=== PATIENT | male | born 1975 | race Caucasian/White ===

== ENCOUNTER 2024-02-19 09:21 | Day surgery (SDC) | payer MEDICAID, SELFPAY ==
--- NOTE | 2024-02-11 07:40 | EKG12_ITS ---
Test Reason : PRE OP Blood Pressure : */* mmHG Vent. Rate : 63 BPM Atrial Rate : 63 BPM P-R Int : 170 ms QRS Dur : 118 ms QT Int : 404 ms P-R-T Axes : 73 98 19 degrees QTcB Int : 413 ms Normal sinus rhythm Rightward axis Non-specific intra-ventricular conduction delay Borderline ECG No previous ECGs available Confirmed by WILL WHATLEY, STEPH ([id number]), supervising editor trailer GERALDO CRAWFORD ([id number]) on 02/12/2024 6:15:37 AM Referred By: Jose Wetzel Confirmed By: STEPH SOLIS MD
[2024-02-11 07:52] LABS: Hematocrit 42.7 % (40-54); Mean Corp Hgb Conc 32.8 g/dL (32-36); Mean Corpuscular Hgb 29.1 pg (27.0-32.0); Mean Corpuscular Volume 88.8 fL (80-94); Mean Platelet Vol. 10.2 fl (6.2-12.0); Platelet Count 262 K/mm3 (150-450); RBC Distribution Width SD 42.5 fl (35.1-43.9); Red Blood Count 4.81 M/mm3 (4.6-6.2); White Blood Count 6.4 K/mm3 (4.4-11.0)
--- NOTE | 2024-02-12 10:40 | PAT.ANESEVAL ---
Pre-Assessment Diagnosis/Proposed Procedure Planned Operative Procedure(s): (R) Lap Robotic Inguinal Hernia with mesh poss bilateral Anesthesia History Anesthesia History - liquid flavor compounder: Anesthesia History - liquid flavor compounder Hx Hospitalization No 02/09/24 12:57 Any Problems With Anesthesia No 02/09/24 12:57 Cholinesterase deficiency No 02/09/24 12:57 You/Your Family Experience No 02/09/24 12:57 fever (hyperthermia) with Relationship Recent Exposure to Contagious Disease Does patient have nerve No 02/09/24 12:57 stimulator Patient instructed to have device shut off --Does patient have Pacemaker or ICD? When Was Last Pacemaker Check QUESTION #4 FULL TEXT: You/Your Family Experience fever (hyperthermia) with Anesthesia Last Oral Intake Last Oral intake: Last Oral Intake NPO since Meds taken in AM with sips of water? Meds patient instructed to take am of surgery PONV PONV - liquid flavor compounder: PONV - liquid flavor compounder Female No 02/09/24 12:57 HX of Motion Sickness Yes 02/09/24 12:57 HX of N/V After Surgery No 02/09/24 12:57 Non-Smoker Yes 02/09/24 12:57 Duration of Surgery greater Yes 02/09/24 12:57 than 60 minutes Number of Risk Factors 3 02/09/24 12:57 PONV Score Moderate Risk 02/09/24 12:57 Height & Weight Height & Weight: Anesthesia: Height & Weight Height 5 ft 10 in 02/04/24 14:27 Respiratory Assessment Respiratory Assessment - liquid flavor compounder: Respiratory Tract Infection Hx - liquid flavor compounder Hx Respiratory Tract Infection Yes 02/09/24 12:57 STOP Sleep Apnea STOP Sleep Apnea - liquid flavor compounder: STOP Sleep Apnea - liquid flavor compounder Hx Hypertension No 02/09/24 12:57 Hx Sleep Apnea No 02/09/24 12:57 CPAP BIPAP Do you snore loudly (louder Yes 02/09/24 12:57 than talking or can be heard Do you often feel tired/ No 02/09/24 12:57 fatigued/ sleepy during daytime? Has anyone observed you stop Yes 02/09/24 12:57 breathing during sleep? STOP Results Positive 02/09/24 12:57 QUESTION #5 FULL TEXT : Do you snore loudly (louder than talking or can be heard through closed doors)? Tobacco Use History Tobacco Use History - liquid flavor compounder: Tobacco Use History - liquid flavor compounder Tobacco Use Smoking Status Never smoker 02/09/24 12:57 Hx Tobacco Use No 02/09/24 12:57 Years Smoking Packs Smoked per Day Smoking Cessation Date was within the last 15 years Hx Smoking Cessation Date Hx Smoking Cessation Counseling Hematologic Medial History Hematologic Hx - liquid flavor compounder: Hematologic Medical Hx - manager van Hx of Blood Transfusion No 02/09/24 12:57 Hx of Transfusion in last 3 No 02/09/24 12:57 Months Date of Last Transfusion (if within last 3 months) Ever experience any problems No 02/09/24 12:57 with transfusion(s)? Specify any problems Hx of Preganancy in last 3 N/A 02/09/24 12:57 Months Nurse Filling Out Transfusion MGRIFFITH 02/09/24 12:57 & Questions: Date: 02/09/24 02/09/24 12:57 Time: 12:59 02/09/24 12:57 Patient unable to answer at this time (ie. confused, unrespo /Reproduction History /Reproductive History - liquid flavor compounder: /Reproductive Hx- liquid flavor compounder Hx Now Gestational Age (in weeks): EDC: Hx Hx Para Hx Section SAB [facility] Medical History (Updated 02/09/24 @ 13:05 by Amanda Yan) Wears glasses Marijuana use Injury of head and neck Former smoker Back problem Right inguinal hernia Home Medications ?Medication ?Instructions ?Recorded ?Last Taken ?Type NK 02/04/24 Unknown History Allergy/AdvReac Type Severity Reaction Status Date / Time No Known Allergies Allergy Verified 02/09/24 12:55 Surgical History (Updated 02/09/24 @ 12:56 by Amanda Yan) History of surgery History of myringotomy History of tonsillectomy and adenoidectomy Social History (Updated 02/04/24 @ 14:27 by Nicolasa Andres LPN) Smoking Status: Never smoker alcohol intake: never substance use type: does not use Audit: Pertinent Findings Pertinent Findings EKG Perinent findings: 02/11/2024 normal sinus rhythm 63 bpm nonspecific interventricular conduction delay Recommendation Anesthesia Recommendation Anesthesia recommendation: OPTIMIZED for anesthesia
[2024-02-19] VITALS (11 sets, daily range): BP systolic 110–137; BP diastolic 61–88; PULSE 49–69; RESP 16–18; TEMP 36.6–37.3; O2SAT 97–100; BMI 27.1
[2024-02-19] MEDS: 0.9% Normal Saline (1000mL) 1,000 ML 15 ML IV ×2 (09:49→13:05)
--- NOTE | 2024-02-19 09:57 | PRE.ANES_ITS ---
ASA Classification* ASA Classification ASA Classification: 2 Assessment & Plan Anesthesia* Anesthesia Assessment Anesthesia Assessment: Discussed sedation and/or anesthesia options, risks, benefits, and alternatives with patient/parents/legal guardian/POA. Questions invited. The patient/parents/legal guardian/POA seems to understand and agrees to proceed with anesthesia plan. Reviewed the physical assessment, medical history, allergy history and patient home medications list prior to surgery/procedure/anesthetic and documented any changes. Performed airway and anesthesia risk assessments. Anesthesia Type Anesthesia Type: General Anesthesia Focused Assessment* Temperature: 99.1 F Pulse Rate: 69 Blood Pressure: 137/88 Respiratory Rate: 16 Pulse Ox: 100 Airway Assessment Mouth opens: >3 cm Mallampati Score: II Focused Labs Anesthesia Preop lab: CBC WBC 6.4 K/mm3 (4.4-11.0) 02/11/24 07:38 RBC 4.81 M/mm3 (4.6-6.2) 02/11/24 07:38 Hgb 14.0 g/dL (13.0-16.5) 02/11/24 07:38 Hct 42.7 % (40-54) 02/11/24 07:38 Plt Count 262 K/mm3 (150-450) 02/11/24 07:38 CHEMISTRY COAG Pre-Assessment Diagnosis/Proposed Procedure Planned Operative Procedure(s): (R) Lap Robotic Inguinal Hernia with mesh poss bilateral Anesthesia History Anesthesia History - certified ski patroller: Anesthesia History - certified ski patroller Hx Hospitalization No 02/09/24 12:57 Any Problems With Anesthesia No 02/09/24 12:57 Cholinesterase deficiency No 02/09/24 12:57 You/Your Family Experience No 02/09/24 12:57 fever (hyperthermia) with Relationship Recent Exposure to Contagious No 02/19/24 09:46 Disease Does patient have nerve No 02/09/24 12:57 stimulator Patient instructed to have device shut off --Does patient have Pacemaker No 02/19/24 09:46 or ICD? When Was Last Pacemaker Check QUESTION #4 FULL TEXT: You/Your Family Experience fever (hyperthermia) with Anesthesia Last Oral Intake Last Oral intake: Last Oral Intake NPO since 00:00 02/19/24 09:46 Meds taken in AM with sips of No 02/19/24 09:46 water? Meds patient instructed to take am of surgery PONV PONV - certified ski patroller: PONV - certified ski patroller Female No 02/09/24 12:57 HX of Motion Sickness Yes 02/09/24 12:57 HX of N/V After Surgery No 02/09/24 12:57 Non-Smoker Yes 02/09/24 12:57 Duration of Surgery greater Yes 02/09/24 12:57 than 60 minutes Number of Risk Factors 3 02/09/24 12:57 PONV Score Moderate Risk 02/09/24 12:57 Height & Weight Height & Weight: Anesthesia: Height & Weight Height 5 ft 10 in 02/19/24 09:46 Weight: 85.6 kg 02/19/24 09:46 Body Mass Index (BMI) 27.1 02/19/24 09:46 Respiratory Assessment Respiratory Assessment - certified ski patroller: Respiratory Tract Infection Hx - certified ski patroller Hx Respiratory Tract Infection Yes 02/09/24 12:57 STOP Sleep Apnea STOP Sleep Apnea - certified ski patroller: STOP Sleep Apnea - certified ski patroller Hx Hypertension No 02/09/24 12:57 Hx Sleep Apnea No 02/09/24 12:57 CPAP BIPAP Do you snore loudly (louder Yes 02/09/24 12:57 than talking or can be heard Do you often feel tired/ No 02/09/24 12:57 fatigued/ sleepy during daytime? Has anyone observed you stop Yes 02/09/24 12:57 breathing during sleep? STOP Results Positive 02/09/24 12:57 QUESTION #5 FULL TEXT : Do you snore loudly (louder than talking or can be heard through closed doors)? Tobacco Use History Tobacco Use History - certified ski patroller: Tobacco Use History - certified ski patroller Tobacco Use Smoking Status Never smoker 02/09/24 12:57 Hx Tobacco Use No 02/09/24 12:57 Years Smoking Packs Smoked per Day Smoking Cessation Date was within the last 15 years Hx Smoking Cessation Date Hx Smoking Cessation Counseling Hematologic Medial History Hematologic Hx - certified ski patroller: Hematologic Medical Hx - senior data quality analyst Hx of Blood Transfusion No 02/09/24 12:57 Hx of Transfusion in last 3 No 02/09/24 12:57 Months Date of Last Transfusion (if within last 3 months) Ever experience any problems No 02/09/24 12:57 with transfusion(s)? Specify any problems Hx of Preganancy in last 3 N/A 02/09/24 12:57 Months Nurse Filling Out Transfusion MGRIFFITH 02/09/24 12:57 & Questions: Date: 02/09/24 02/09/24 12:57 Time: 12:59 02/09/24 12:57 Patient unable to answer at this time (ie. confused, unrespo /Reproduction History /Reproductive History - certified ski patroller: /Reproductive Hx- certified ski patroller Hx Now Gestational Age (in weeks): EDC: Hx Hx Para Hx Section SAB Active Medications Active Medications: Current Medications Generic Name Dose Route Start Last Admin Trade Name Freq PRN Reason Stop Dose Admin Cefazolin Sodium 2 gm/ N/A 20 mls @ 400 mls/hr 02/19/24 11:30 IV 02/19/24 11:32 PREOP ONE Sodium Chloride 1,000 mls @ 15 mls/hr 02/19/24 09:30 02/19/24 09:49 IV 02/24/24 22:49 15 mls/hr .Q48H PAN Administration Protocol [facility] Medical History Wears glasses Marijuana use Injury of head and neck Former smoker Back problem Right inguinal hernia Home Medications ?Medication ?Instructions ?Recorded ?Last Taken ?Type NK 02/04/24 Unknown History Allergy/AdvReac Type Severity Reaction Status Date / Time No Known Allergies Allergy Verified 02/19/24 09:45 Surgical History History of surgery History of myringotomy History of tonsillectomy and adenoidectomy Social History Smoking Status: Never smoker alcohol intake: never substance use type: does not use Review of Systems (Anesthesia) ROS Narrative System reviewed and no additional complaints, except as documented.
--- NOTE | 2024-02-19 10:36 | HP.PCM_ITS ---
History and Physical Date of Admission: 02/19/24 Intake Vital Signs 02/03/2414:27 Height 5 ft 10 in Weight: 193 lb BMI 27.6 BP 128/83 H Blood Pressure Location Rt brachial Position Sitting Respiration 18 Pulse 73 Pulse Source Monitor Temp 97.2 F L Temp Source Temporal Pulse Oximetry (%) 99 Oxygen Delivery Method room air Intake Visit Reasons: INGUINAL HERNIA Chief Complaint: inguinal hernia Is patient in pain?: No Allergies soap Adverse Reaction (Mild, Verified 02/04/24 14:28) Rash Medications ?Medication ?Instructions ?Recorded ?Confirmed ?Type NK 02/04/24 02/04/24 History PFSH Medical History (Updated 02/04/24 @ 14:27 by Nicolasa Andres LPN) Back problem Right inguinal hernia Social History (Updated 02/04/24 @ 14:27 by Nicolasa Andres LPN) Smoking Status: Never smoker alcohol intake: never substance use type: does not use HPI HPI HPI: Patient is a 48-year-old male here for right groin bulging. The patient has a right inguinal hernia that has been there for 10 years. He says he is tired of reducing it and would like it fixed. He denies nausea vomiting or fevers or chills. ROS General General: No weight change, appetite, fatigue, colon cancer, breast cancer or weakness HEENT HEENT: No difficulty swallowing, eye injury, eye surgery, swollen glands or hoarseness Endo Endocrine: No thyroid disease, diabetes mellitus, thyroid cancer, Hair loss, heat intolerance or cold intolerance Skin Skin: No rash or changing moles Musc Musculoskeletal: Yes back problems; No arthritis, rheumatoid arthritis, gout or joint pain Cardio Cardiovascular: No murmur, pacemaker, heart disease, atrial fibrillation, high blood pressure, heart attack, heart stent, palpitations, shortness of breat with exertion or chest pain Psych Psychiatric: No depression, anxiety or hearing voices Resp Respiratory: No shortness of breath, No sleep apnea, No cough, No COPD, No asthma, No emphysema and No wheezing Gastro Gastrointestinal: No abdominal pain, No nausea or vomiting, No diarrhea, No constipation, No blood in stool, No acid reflux, No hemorrhoids, No ulcers, No gallbladder problem and No black,tarry stools Saeid Hematologic: No blood thinners, No blood disorders, No bleeding, No anemia and No blood clots Neuro Neurologic: No numbness, No tingling and No weakness Exam Const General: cooperative Orientation: alert and oriented x3 HENMT Head: normal to inspection Neck Neck: normal visual inspection and full ROM Chest Chest palpation & inspection: normal inspection of the chest Resp Effort & Inspection: normal respiratory effort Auscultation: clear to auscultation bilaterally Cardio Rate: regular rate Rhythm: regular rhythm GI Inspection: non-distended Palpation: soft, hernia indirect inguinal on the right and nontender Skin General: no rashes or lesions noted Neuro General: patient alert and patient oriented x3 Extrem General: full ROM Psych Appearance: grossly normal Mental Status: mental status grossly normal Assessment and Plan Assessment and Plan (1) Right inguinal hernia: Status: Acute Plan: Patient has a right inguinal hernia which is reducible. I discussed robotic assisted laparoscopic right inguinal hernia repair with mesh. I discussed the procedure as well as the risks including but not limited to bleeding, infection, injury other organs such as the blood supply to the testicle or the testicle itself or the bladder or bowel. Patient understands all the risks and is willing to proceed. The patient would like the contralateral side fixed if there is a hernia present. Jose Wetzel MD Pager: [facility] [address] [place] [address], [address] [place] [address] Office: I have examined the patient and the H&P has been reviewed. There are no clinical changes since date of exam.
[2024-02-19] MEDS: Cefazolin 2 GM in Syringe IV (10:55)
--- NOTE | 2024-02-19 12:02 | OP.PCM_ITS ---
Operative Report (Standard) Operative Information Date of Procedure: 02/19/24 Pre-Operative Diagnosis: Right inguinal hernia Post-Operative Diagnosis: Right inguinal hernia Surgery/Procedure Performed: Robotic assisted laparoscopic right inguinal hernia repair with mesh loft patternmaker: Yes Proc Tech: Raiza Marcial Tasks completed by construction project assistant: Opening and Closing Type of Anesthesia: General/Regional RN Documented Start/Stop Times: Operation Date: 02/19/24 11:00 Case Time Into Pre-Op 02/19/24 09:29 Out of Pre-Op 02/19/24 10:53 Anesthesia Start 02/19/24 10:55 Into Room 02/19/24 10:55 Procedure Start 02/19/24 11:13 Procedure Start Time: 11:13 Procedure Stop Time: 12:12 Select all DRAINS/GRAFTS/IMPLANTS that apply: Implanted device Implanted device details: ProGrip mesh in the right inguinal region Estimated Blood Loss: 5 Specimen collected: No Description of surgery: Patient was brought back to the operating room and general anesthesia was induced. The abdomen was prepped and draped in usual sterile fashion. A midline incision was made superior to the umbilicus and deepened to the fascia which was elevated and a Veress needle was placed into the abdomen. A drop test was performed. The abdomen was then insufflated to 15 mmHg. The Veress needle was removed and a port was placed. The abdomen was inspected for injuries and there were none. Next the inguinal regions were inspected. The patient had an indirect right inguinal hernia but nothing on the left. Under direct visualization an 8 mm ports placed in the right lateral abdomen as well as the left lateral abdomen and the patient was placed in Trendelenburg position and the robot was docked. Next using electrocautery scissors an incision was made in the peritoneum in the right lower quadrant. Dissection was carried inferiorly until the hernia sac was encountered. The hernia sac was densely adherent to the cord. I decided to abandon the sac and it was amputated after being dissected circumferentially. The distal sac retracted into the scrotum. Dissection was then carried posteriorly until the psoas was reached. Next a pie ce of ProGrip mesh was placed over the right inguinal hernia and unfolded. There was good coverage circumferentially. Next the peritoneum was reapproximated using running 3 OV lock suture completely covering the mesh. The small area where the sac was was closed as well. The mesh was completely covered by peritoneum at the end of the procedure. Next the robot was undocked and the ports were removed and the abdomen was allowed to desufflate. The incisions were injected with local anesthetic and closed with interrupted 4-0 Monocryl sutures and Steri-Strips and bandages. Scrotum was checked in the end of the case contained both testicles. Patient was taken to PACU in stable condition and tolerated the procedure well. Surgical Findings: Right inguinal hernia Complications Complications: No Admit VTE Documentation VTE Mechan Device Prophylaxis: SCD's
--- NOTE | 2024-02-19 12:05 | DCINST_ITS ---
Discharge Instructions Procedure Hernia Diet Discharge Diet: Light diet - advance as tolerated Activity Discharge Activity: May Not Drive (for 2-3 days or while taking narcotic pain meds.) and May Shower (with the bandage in place 1-2 days after surgery.) Lifting Restrictions: 20 pounds for 4 weeks. Additional Activity Instructions:: Climbing stairs is fine, walking is encouraged. Sitting in bed may be uncomfortable. Sitting up using your lateral muscles (sitting up sideways) is usually more comfortable. Do not drive, work heavy equipment of sign legal documents for 24 hours. If your hernia repair was an inguinal repair, you may have scrotal swelling, an ice pack and/or athletic support can provide more comfort. Pain medications may cause nausea, you should typically eat light foods as you take your pain medications. Pain medications may also cause constipation. If you have difficulty with this, discuss with your doctor. Alternate ibuprofen and Tylenol for pain control, oxycodone for breakthrough pain. Dressing / Incision Call your doctor if your incision/area has: Continuous Slow Oozing, Sudden Increased Bleeding, Increased Pain/ Swelling, Increased Redness and Foul Smelling Discharge Call your doctor if you observe: Fever of 101 or Higher Suture Line Care: Avoid Pulling/Pushing and Avoid Pinching/Bending Remove Dressing in: 2 days (Remove clear bandages in 2 days, remove Steri-Strips in 7 to 10 days.) Cleanse incision/area with: Soap & Water Follow Up Care Please Follow Up With: Jose Wetzel MD When: Please call to schedule 2 week follow up appointment. [phone] Test Results: Test results from this visit will be discussed in further detail at your follow- up appointment, if applicable. Discharge Plan Admission Attending Provider: Jose Wetzel Primary Care Provider: Denita Mas NP Consulting Providers: Marty Elliott Print Language: Korean Discharge Orders/Prescriptions Prescriptions: New oxycodone 5 mg Tablet 5 - 10 mg PO Q4H PRN PRN (Reason: Pain Score 4-10) 5 Days Qty: 10 0RF Other Ambulatory Orders: 12 Lead EKG (Routine) Timeframe: 20240211 Location: None Selected Ordered By: Dr. Marty Elliott Referrals / Follow Up: Denita Mas NP, CASUALTY CLAIMS SUPERVISOR-C [Primary Care Provider] - Disposition Disposition (needs filled in before D/C Order can be placed): Home, Self Care
[2024-02-19] MEDS: Bupivacaine Mpf 0.5% 30 ML VIAL (12:06)
--- NOTE | 2024-02-19 13:25 | PCM.POST.ANE ---
Anesthesia: Postop Eval I Current Vital Signs Temperature: 98 F Pulse Rate: 66 Blood Pressure: 124/61 Respiratory Rate: 16 Pulse Ox: 100 Oxygen Delivery Method: Room Air Assessment Airway patent: No Spontaneous unlabored respirations: No Mental status: Awake and Calm nausea: No Vomiting: No Anesthesia Complication: No Fluid Hydration Crystalloid volume administer (ml): 900 Total IV fluid infused: 900 Progress Note Anesthesia document: Postop Eval 1 completed: Yes
--- NOTE | 2024-02-19 13:26 | POSTOPAN2_ITS ---
Anesthesia Postop Eval I Sum Postop Eval Completion status Anesthesia document: Postop Eval 1 completed: Yes Anesthesia Postop Eval I Summary Anesthesia Postop Eval I Summary: Anesthesia Postop Eval I: Assessment Summary Airway patent No 02/19/24 13:26 [email or web address] Spontaneous unlabored No 02/19/24 13:26 [email or web address] respirations Mental status Awake,Calm 02/19/24 13:26 [email or web address] nausea No 02/19/24 13:26 [email or web address] Vomiting No 02/19/24 13:26 [email or web address] Anesthesia Postop Eval I: Fluid Summary Crystalloid volume administer 900 02/19/24 13:26 [email or web address] (ml) Colloids volume administered ( ml) Blood Product volume administered (ml) Total IV fluid infused 900 02/19/24 13:26 [email or web address] Anesthesia Postop Eval I: Summary Notes Anesthesia Complication No 02/19/24 13:26 [email or web address] Anesthesia Complication Comment: Post-operative progress note Anesthesia: Postop Eval II Evaluation Mental status: Awake and Calm Pain Level: 0 nausea: No Vomiting: No Complications Anesthesia Complication: No
--- NOTE | 2024-02-19 13:26 | PCM.POSTANE2 ---
Anesthesia Postop Eval I Sum Postop Eval Completion status Anesthesia document: Postop Eval 1 completed: Yes Anesthesia Postop Eval I Summary Anesthesia Postop Eval I Summary: Anesthesia Postop Eval I: Assessment Summary Airway patent No 02/19/24 13:26 HOME ENERGY [email or web address] Spontaneous unlabored No 02/19/24 13:26 HOME ENERGY INSPECTOR.MDOT respirations Mental status Awake,Calm 02/19/24 13:26 HOME ENERGY INSPECTOR.MDOT nausea No 02/19/24 13:26 HOME ENERGY INSPECTOR.MDOT Vomiting No 02/19/24 13:26 HOME ENERGY [email or web address].MDOT Anesthesia Postop Eval I: Fluid Summary Crystalloid volume administer 900 02/19/24 13:26 HOME ENERGY [email or web address].MDOT (ml) Colloids volume administered ( ml) Blood Product volume administered (ml) Total IV fluid infused 900 02/19/24 13:26 HOME ENERGY [email or web address].MDOT Anesthesia Postop Eval I: Summary Notes Anesthesia Complication No 02/19/24 13:26 HOME ENERGY [email or web address].MDOT Anesthesia Complication Comment: Post-operative progress note Anesthesia: Postop Eval II Evaluation Mental status: Awake and Calm Pain Level: 0 nausea: No Vomiting: No Complications Anesthesia Complication: No
[2024-02-19] MEDS: Acetaminophen 325 MG Tablet 650 MG PO (13:53)
[2024-02-19] MEDS: oxyCODONE 5 MG Tablet PO (13:53)
== END 2024-02-19 15:22 | disposition home or self-care (01) ==
LOC: SDC 09:22 → AC 09:24
PROVIDERS: Anesthesiology; PCP Nurse Practitioner Family; Referring Provider Surgery; Visit Provider Surgery
PROC: (CPT 49650; principal; 2024-02-19 10:40)
DX: K40.90 Unilateral inguinal hernia, without obstruction or gangrene, not specified as recurrent (principal)
CPT/HCPCS: 49650; S2900; 00840; 36415; 85027; 93005; J2405